=== PATIENT | female | born 1990 | race African-American/Black ===

== ENCOUNTER 2016-06-11 05:55 | Inpatient (IN) | payer MEDICAID ==
[2016-06-11] MEDS ORDERED: CARBOPROST TROMETHAMINE 250 MCG/ML 1 ML AMP IM PRN (06:16)
[2016-06-11] MEDS ORDERED: METHYLERGONOVINE 0.2 MG/ML 1 ML AMP IM PRN (06:16)
[2016-06-11] MEDS ORDERED: LIDOCAINE 1% (PF) 10 MG/ML (30 ML SDV) SQ PRN (06:16)
[2016-06-11] MEDS ORDERED: TERBUTALINE 1 MG/ML VIAL SQ PRN (06:16)
[2016-06-11] MEDS ORDERED: OXYTOCIN 10 UNIT/ML 1 ML VIAL IM PRN (06:16)
[2016-06-11] MEDS ORDERED: OXYTOCIN 30 UNITS/500 ML NS 30 UNIT in SALINE 1 500ML.BAG IV SCH (06:30)
[2016-06-11] MEDS: LACTATED RINGERS 1,000 ML IV SCH ×3 (06:52→19:17)
[2016-06-11 06:55] LABS: Basophils # (A) 0.1 k/uL (0-0.2); Basophils % (A) 1 %; CHCM 34.6; Eosinophils # (A) 0.1 k/uL (0-0.7); Eosinophils % (A) 1 %; HCT 38.1 % (34.0-46.0); HDW 2.66; HGB 12.9 gm/dL (11.4-16.0); Luc # (Auto) 0.17; Luc % (Auto) 2; Lymphocytes # (A) 1.2 k/uL (1.0-4.8); Lymphocytes % (A) 11 %; MCH 32.6 pg (25.0-35.0); MCV 95.8 fL (80.0-100.0); Mean Platelet Volume 8.9; Monocytes # (A) 0.6 k/uL (0-1.0); Monocytes % (A) 6 %; Neutrophils # (A) 8.2 k/uL (1.3-7.7); Neutrophils % (A) 79 %; RBC 3.98 m/uL (3.80-5.40); RDW 14.1 % (11.5-15.5); WBC 10.4 k/uL (3.8-10.6); WBC (Perox) 11.39
[2016-06-11 07:39] VITALS: BMI 31.7
--- NOTE | 2016-06-11 07:40 | P.HPOB ---
History of Present Illness H&P Date: 06/11/16 This is a 25-year-old female 2 para 0010 EDC 06/15/2016 at 39-3/7 weeks ' gestation. Patient presents for elective induction. Fetus is been active throughout the . She is having mild uterine contractions but denies any significant pain. She denies fluid leaking or vaginal drainage, no bleeding. history is significant for blood type O+, rubella status immune, VDRL testing, urine culture, hepatitis B surface antigen, HIV testing all negative. Gonorrhea and chlamydia cultures negative, group B strep cultures negative. One -hour Glucola 88 past surgical history significant for diagnostic hysteroscopy and D&C 2014, tonsillectomy 2004. ALLERGIES none known. Current medications vitamin daily. Past medical history is essentially negative. Social history patient works for [employer], she is single, no alcohol tobacco or drug use. On exam this is a pleasant white female, 5 foot 4 inches, 185 pounds, vital signs are stable and she is afebrile. The general physical exam is within normal limits. The chest is clear in all bowman. The extremities reveal no edema. The cervix is 1 cm, 80% effaced, anterior, soft, -2 station. Artificial amniorrhexis reveals clear fluid. heart rate in the 140s with frequent accelerations, consistent with reactive NST. Impression: 39-3/7 week intrauterine , here for elective induction of labor. Plan: Close maternal and surveillance. Oxytocin per hospital protocol. Anticipate normal spontaneous vaginal delivery. Past Medical History Past Medical History: Skin Disorder Additional Past Medical History / Comment(s): hives occ from heat exposure, abnormal vag bleeding History of Any Multi-Drug Resistant Organisms: None Reported Past Surgical History: Tonsillectomy Past Anesthesia/Blood Transfusion Reactions: No Reported Reaction Past Psychological History: No Psychological Hx Reported Smoking Status: Never smoker Past Alcohol Use History: Occasional Past Drug Use History: None Reported - Past Family History Mother Family Medical History: No Reported History Medications and Allergies Home Medications Medication Instructions Recorded Confirmed Type Vit No.124/Iron/FA 1 each PO DAILY 11/25/14 06/11/16 History [ Vitamin Tablet] Allergies Allergy/AdvReac Type Severity Reaction Status Date / Time No Known Allergies Allergy Verified 11/25/14 13:58 Exam - Vital Signs Vital signs: Intake and Output 06/10/16 06/11/16 06/11/16 22:59 06:59 14:59 Other: Weight 83.915 kg Results Result Diagrams: 06/11/16 06:30 Abnormal Lab Results - Last 24 Hours (Table) 06/11/16 Range/Units 06:30 Neutrophils # 8.2 H (1.3-7.7) k/uL
[2016-06-11] MEDS: BUTORPHANOL 1 MG/ML 1 ML VIAL IV PRN ×2 (13:35→23:39)
[2016-06-11] MEDS ORDERED: fentaNYL (PF) 50 MCG/ML 5 ML AMP ONE (15:06)
[2016-06-11] MEDS ORDERED: BUPIVACAINE (PF) 0.25% 30 ML VIAL ONE (15:06)
[2016-06-11] MEDS ORDERED: SODIUM CHLORIDE 0.9% 100 ML BAG ONE (15:06)
[2016-06-11] MEDS ORDERED: BUPIVACAINE (PF) 0.25% 25 ML, fentaNYL (PF) 200 MCG in SODIUM CHLORIDE 0.9% 71 ML EPIDURAL ONE (17:35)
[2016-06-11 23:53] LABS: Basophils % (A) 0 %; CH 32.6; CHCM 34.2; Eosinophils # (A) 0.2 k/uL (0-0.7); Eosinophils % (A) 1 %; HCT 31.4 % (34.0-46.0); HDW 2.56; HGB 10.7 gm/dL (11.4-16.0); Luc # (Auto) 0.11; Luc % (Auto) 1; Lymphocytes # (A) 0.6 k/uL (1.0-4.8); Lymphocytes % (A) 3 %; MCH 32.7 pg (25.0-35.0); MCV 95.9 fL (80.0-100.0); Mean Platelet Volume 8.4; Monocytes # (A) 0.7 k/uL (0-1.0); Monocytes % (A) 4 %; Neutrophils # (A) 18.4 k/uL (1.3-7.7); Neutrophils % (A) 92 %; RBC 3.27 m/uL (3.80-5.40); WBC (Perox) 21.43
[2016-06-12] MEDS ORDERED: ceFAZolin 1,000 MG VIAL ONE (00:14)
[2016-06-12] MEDS ORDERED: fentaNYL (PF) 50 MCG/ML 2 ML AMP ONE (00:14)
[2016-06-12] MEDS ORDERED: OXYTOCIN 10 UNIT/ML 1 ML VIAL IM ONE (00:14)
[2016-06-12] MEDS ORDERED: PHENYLEPHRINE-0.9% NACL SYG 1 MG/10 ML SYRINGE ONE (00:14)
[2016-06-12] MEDS ORDERED: SUCCINYLCHOLINE CHLORIDE 100 MG/5 ML SYR IV ONE (00:14)
[2016-06-12] MEDS ORDERED: LIDOCAINE 2% INJ 20 MG/ML (20 ML MDV) ONE (00:14)
[2016-06-12] MEDS ORDERED: MIDAZOLAM 2 MG/2 ML VIAL ONE (00:14)
[2016-06-12] MEDS ORDERED: PROPOFOL 10 MG/ML 20 ML VIAL IV ONE (00:14)
[2016-06-12 00:20] LABS: Partial Thromboplastin Time 23.7 sec (22.0-30.0); Prothrombin Time 10.1 sec (9.0-12.0)
[2016-06-12] MEDS ORDERED: WITCH HAZEL 1 EACH MED..PAD TOPICAL PRN (00:54)
[2016-06-12] MEDS ORDERED: HYDROCORTISONE 2.5% RECTAL CREAM 30 GM TUBE RECTAL PRN (00:54)
[2016-06-12] MEDS ORDERED: ACETAMINOPHEN TAB 325 MG TAB PO PRN (00:54)
[2016-06-12] MEDS ORDERED: diphenhydrAMINE ELIXIR 25 MG/10 ML CUP PO PRN (00:54)
[2016-06-12] MEDS ORDERED: diphenhydrAMINE 25 MG CAP PO PRN (00:54)
[2016-06-12] MEDS ORDERED: BENZOCAINE/MENTHOL SPRAY 1 GM/SPRAY AEROSOL TOPICAL PRN (00:54)
[2016-06-12] MEDS ORDERED: ZOLPIDEM 5 MG TAB PO PRN (00:54)
[2016-06-12] MEDS ORDERED: LANOLIN CREAM 5 GM TUBE TOPICAL PRN (00:54)
[2016-06-12] MEDS ORDERED: SIMETHICONE 80 MG CHEWABLE PO PRN (00:54)
[2016-06-12] MEDS ORDERED: diphenhydrAMINE 50 MG/ML 1 ML VIAL IVP PRN ×2 (00:54)
[2016-06-12] MEDS ORDERED: Acetaminophen-Codeine 300-30mg TAB PO PRN (00:54)
[2016-06-12] MEDS ORDERED: diphenhydrAMINE 50 MG CAP PO PRN (00:54)
--- NOTE | 2016-06-12 00:54 | P.PROBDLV ---
Vaginal Delivery Note - . Vaginal Delivery Note: This is a 25-year-old female 2 para 0010 EDC 06/15/2016 at 39-3/7 weeks ' gestation. Patient presented for induction, essentially unremarkable, blood type O+, rubella status immune, group B strep cultures negative. Please see admitting H&P for details. Artificial amniorrhexis revealed clear fluid. Oxytocin was started and titrated per hospital protocol. Patient progressed well through the first stage of labor, requested epidural and this was placed without difficulty. heart tones were reassuring throughout the first and second stages of labor. Patient became completely dilated at 2128 hours and began the second stage of labor at that time. With excellent maternal expulsive efforts, ultimately the infant crowned in the occiput posterior position. The perineal body was prepped and draped in usual sterile fashion. A midline episiotomy was performed with 1% lidocaine infiltration. 's head delivered directly occiput posterior and restituted accordingly. There was no nuchal cord noted. The left or anterior shoulder was gently delivered from underneath the pubic symphysis at which time the oropharynx, nasopharynx and external nares were bulb suctioned on the perineal body. Patient was officially delivered of a liveborn female at 07/13/2002 hours. Umbilical cord was doubly clamped and ligated, she was handed to waiting nurses for evaluation. scores of 8 and 9 at one and 5 minutes respectively were given. weighed 3155 g. At this time massage of the uterine fundus was performed. With good maternal expulsive efforts, the placenta delivered. Upon delivery of the placenta, it was noted to be firmly attached to the uterine wall with complete uterine inversion. The placenta was , intact with trivascular cord. The uterus is then pushed back into the pelvic cavity. Uterus is massaged and noted to be firm and in the midline. Inspection of the vaginal lepe, perineum , periurethral and perirectal areas revealed the midline episiotomy only. This was repaired in the usual fashion using 3-0 Vicryl suture. Bleeding was noted to be brisk, Methergine was given IM. Uterine massage continued. Hemabate was next given. A second IV was opened. Anesthesia was alerted and called to the bedside. Reexamination of the vagina cervix and uterus was consistent with a complete uterine inversion. Patient was typed and crossed for 2 units of packed red blood cells, and the decision was made to go back to the operating room for general anesthetic to revert the uterus. Family was notified of the situation. Patient was brought back to the operating room. Dr. Holguin in attendance, general anesthetic was given. 2 g of Ancef were given as well. The perineal body is prepped and draped in usual sterile fashion. Beauchamp catheter placed to direct drainage. When the patient is completely relaxed, I inserted my fist through the vagina and up into the uterine cavity, and I am able to read for the uterus into its proper configuration. A second surgeon was called to assist me, Dr. Lock in assistance. He to examine the patient under anesthesia and at this time was satisfied that the uterus was back into proper position. Bleeding was at this time minimal. The episiotomy was reinspected and a single [id number] suture is used to bring the edges together where it had slightly opened with manipulation. All sponge needle and instrument counts are correct. Total estimated blood loss 2000 mL's. 2 units of packed red blood cells will be given to the patient and IV fluid resuscitation will continue. She is currently hemodynamically stable and heading back to her delivery suite. Close medical surveillance through the night will be maintained.
[2016-06-12] MEDS ORDERED: OXYTOCIN 30 UNITS/500 ML NS 30 UNIT in SALINE 1 500ML.BAG IV SCH (01:00)
[2016-06-12] MEDS: IBUPROFEN 600 MG TAB PO PRN ×3 (01:36→20:01)
--- NOTE | 2016-06-12 08:35 | P.PN ---
Subjective Principal diagnosis: day #1 Objective - Vital Signs Vital signs: Vital Signs Temp 98.3 F 06/12/16 08:00 Pulse 122 H 06/12/16 08:00 Resp 16 06/12/16 08:00 BP 127/83 06/12/16 08:00 Pulse Ox 100 06/12/16 01:15 Intake & Output 06/11/16 06/12/16 06/12/16 18:59 06:59 18:59 Intake Total 3120 Output Total 250 300 Balance -250 2820 Intake: IV 2500 Lactated Ringers 1,000 ml 1500 @ 125 mls/hr IV .Q8H ESSIE Rx#:[id number] Oxytocin 30 Units/500 ml 1000 Ns 30 unit In Saline 1 500ml.bag @ 1 MILLIUNIT/ MIN 1 mls/hr IV .Q24H ESSIE Rx#:[id number] Blood Product 620 Rc As-1 Unit 310 [id number] Rc As-1 Unit 310 [id number] Output: Urine 250 300 Straight 250 300 Other: # Voids 1 1 - Constitutional General appearance: Present: average body habitus - EENT Eyes: Present: PERRLA ENT: Present: hearing grossly normal - Neck Neck: Present: normal ROM Thyroid: bilateral: normal size - Respiratory Respiratory: bilateral: CTA - Cardiovascular Rhythm: regular - Gastrointestinal Gastrointestinal Comment(s): Fundus firm, midline, symmetric, 18 week size, nontender - Genitourinary Genitourinary Comment(s): Minimal lochia rubra - Integumentary Integumentary: Present: normal - Neurologic Neurologic: Present: CNII-XII intact - Musculoskeletal Musculoskeletal: Present: gait normal, strength equal bilaterally - Psychiatric Psychiatric: Present: A&O x's 3, appropriate affect, intact judgment & insight - Labs CBC & Chem 7: 06/11/16 23:42 Labs: Abnormal Lab Results - Last 24 Hours (Table) 06/11/16 06/11/16 06/11/16 Range/Units 06:30 23:42 23:42 WBC 20.0 H (3.8-10.6) k/uL RBC 3.27 L (3.80-5.40) m/uL Hgb 10.7 L (11.4-16.0) gm/dL Hct 31.4 L (34.0-46.0) % Neutrophils # 18.4 H (1.3-7.7) k/uL Lymphocytes # 0.6 L (1.0-4.8) k/uL D-Dimer 6.84 H (<0.60) mg/L FEU Crossmatch See Detail Assessment and Plan Plan: Continue care. May discontinue IV. May shower. Regular diet. Likely discharge home tomorrow. Time with Patient: Less than 30
[2016-06-12] MEDS: SENNOSIDES-DOCUSATE SODIUM 1 EACH TAB PO SCH ×2 (10:27→20:01)
[2016-06-13] MEDS: SENNOSIDES-DOCUSATE SODIUM 1 EACH TAB PO SCH ×2 (07:46→21:37)
--- NOTE | 2016-06-13 08:26 | P.PNOBGVD ---
Subjective - Subjective Principal diagnosis: day 1 status post vaginal delivery with uterine inversion Interval history: Patient reports her pain is well-controlled and her vaginal bleeding has significantly decreased. She does feel like her heart is racing when she gets up and out of bed however she denies feeling dizzy or lightheaded. She is tolerating a general diet. Patient reports: Reports appetite normal, Reports voiding normally, Reports pain well controlled, Denies dizzy ambulation : doing well Objective - Latest Vital Signs Latest vital signs: Vital Signs Temp Pulse Resp BP Pulse Ox 06/13/16 07:49 97.9 F 110 H 16 122/66 98 06/13/16 00:00 98.4 F 122 H 16 111/51 06/12/16 20:00 98.6 F 110 H 16 131/66 100 06/12/16 16:00 98.2 F 118 H 14 133/68 06/12/16 12:00 98.6 F 119 H 16 134/84 Intake and Output 06/12/16 06/13/16 06/13/16 22:59 06:59 14:59 Other: # Voids 1 2 - Exam Extremities: Present: edema Abdomen: Present: normal appearance, soft Uterus: Present: normal, firm, tenderness Assessment and Plan (1) with 39 completed weeks gestation Current Visit: Yes Status: Acute Code(s): Z3A.39 - 39 WEEKS GESTATION OF SNOMED Code(s): 29403359 (2) Uterine inversion Current Visit: Yes Status: Acute Code(s): N85.5 - INVERSION OF UTERUS SNOMED Code(s): 44285946 (3) Normal spontaneous vaginal delivery Current Visit: Yes Status: Acute Code(s): O80 - ENCOUNTER FOR FULL-TERM UNCOMPLICATED DELIVERY SNOMED Code(s): 37712793 (4) Perineal laceration with delivery, second degree Current Visit: Yes Status: Acute Code(s): O70.1 - SECOND DEGREE PERINEAL LACERATION DURING DELIVERY SNOMED Code(s): 3729819 (5) Blood transfusion during current hospitalization Current Visit: Yes Status: Acute Code(s): YOX2760 - SNOMED Code(s): 074074328 (6) Acute blood loss anemia Narrative/Plan: Patient still is tachycardic and somewhat symptomatic. I do not believe she is stable for discharge home. We will repeat CBC this morning as it has not been done since post transfusion. She is not having any active vaginal bleeding at this time. Current Visit: Yes Status: Acute Code(s): D62 - ACUTE POSTHEMORRHAGIC ANEMIA SNOMED Code(s): 835396527
[2016-06-13 09:29] LABS: CH 31.8; CHCM 34.4; MCH 31.7 pg (25.0-35.0); MCHC 34.1 g/dL (31.0-37.0); Mean Platelet Volume 8.4; RBC 2.29 m/uL (3.80-5.40); RDW 15.7 % (11.5-15.5); WBC 16.5 k/uL (3.8-10.6)
[2016-06-13 09:30] LABS: HGB 7.3 gm/dL (11.4-16.0)
[2016-06-13 09:33] LABS: HCT 21.3 % (34.0-46.0)
[2016-06-14 08:05] LABS: Basophils % (A) 0 %; CHCM 34.5; Eosinophils # (A) 0.1 k/uL (0-0.7); Eosinophils % (A) 1 %; HDW 3.08; HGB 8.2 gm/dL (11.4-16.0); Luc # (Auto) 0.15; Luc % (Auto) 1; Lymphocytes # (A) 1.3 k/uL (1.0-4.8); Lymphocytes % (A) 12 %; MCH 31.7 pg (25.0-35.0); MCV 93.4 fL (80.0-100.0); Mean Platelet Volume 8.5; Monocytes # (A) 0.5 k/uL (0-1.0); Monocytes % (A) 5 %; Neutrophils # (A) 8.4 k/uL (1.3-7.7); Neutrophils % (A) 80 %; RBC 2.57 m/uL (3.80-5.40); RDW 15.3 % (11.5-15.5); WBC 10.5 k/uL (3.8-10.6); WBC (Perox) 11.21
[2016-06-14] MEDS: SENNOSIDES-DOCUSATE SODIUM 1 EACH TAB PO SCH (08:10)
--- NOTE | 2016-06-14 08:29 | P.DS ---
Providers Date of admission: 06/11/16 05:55 Expected date of discharge: 06/14/16 Attending physician: Luisa Barillas Primary care physician: Dax Damon - Discharge Diagnosis(es) (1) with 39 completed weeks gestation Current Visit: Yes Status: Acute (2) Uterine inversion Current Visit: Yes Status: Acute (3) Normal spontaneous vaginal delivery Current Visit: Yes Status: Acute (4) Perineal laceration with delivery, second degree Current Visit: Yes Status: Acute (5) Blood transfusion during current hospitalization Current Visit: Yes Status: Acute (6) Acute blood loss anemia Current Visit: Yes Status: Acute Hospital Course: This is a 25-year-old 1 now para 1 woman who was admitted at 39 weeks gestation for elective induction of labor. She underwent an uncomplicated Pitocin induction of labor with artificial rupture of membranes. She went on to deliver a liveborn female infant over second-degree perineal laceration. The third stage was complicated by a uterine inversion with delivery of the placenta. The uterus was initially replaced however on hemorrhage ensued and examination revealed continued uterine inversion. Patient was therefore taken to the operating room for reversion of the uterus. She had an estimated blood loss of approximately 2000 mL's. She was initially transfused 2 units of packed red blood cells. By day #1 her vaginal bleeding was significantly decreased and the uterus palpated firm below the level of the umbilicus. She was however symptomatic. She was lightheaded when up and had an elevated heart rate. Repeat CBC showed a hemoglobin of 7.3. She was therefore on day #2 transfused an additional 1 unit of packed red blood cells. Currently approximately 12 hours post the second transfusion she reports feeling significantly better. She is ambulating and voiding without difficulty. She no longer feels dizzy or like her heart is racing. Her vaginal bleeding is minimal and she reports her perineal swelling is significantly improved. The uterus continues to palpate firm and below the level of the umbilicus. She was therefore deemed stable for discharge home with routine instructions for care and follow-up Procedures: Normal spontaneous vaginal delivery Treatment of uterine inversion Transfusion of packed red blood cells Patient Condition at Discharge: Good Plan - Discharge Summary Discharge Medication List Vit No.124/Iron/FA [ Vitamin Tablet] 1 each PO DAILY 11/25/14 [ History] Follow up Appointment(s)/Referral(s): Luisa Barillas MD [STAFF PHYSICIAN] - 6 Weeks Activity/Diet/Wound Care/Special Instructions: Follow-up in the office in 6 weeks . Call with any concerning signs or symptoms including heavy vaginal bleeding, severe abdominal pain, fever greater than 101, swelling or redness of the lower extremities, foul vaginal discharge, or signs of depression. Nothing in the vagina for 6 weeks after delivery, specifically no intercourse. Discharge Disposition: HOME SELF-CARE
[2016-06-14 09:15] VITALS: BP 132/76; PULSE 87; RESP 16; TEMP 98
== END 2016-06-14 11:05 | disposition home or self-care (01) | DRG 774 ==
LOC: 4FBP 05:55
PROVIDERS: ADMIT Obstetrics & Gynecology; ATTEND Obstetrics & Gynecology
PROC: 3E0R3CZ (ICD-10-PCS; principal; 2016-06-11 06:00)
PROC: 10907ZC Drainage of Amniotic Fluid, Therapeutic from Products of Conception, Via Natural or Artificial Opening (ICD-10-PCS; principal; 2016-06-11 06:00)
PROC: 3E033VJ Introduction of Other Hormone into Peripheral Vein, Percutaneous Approach (ICD-10-PCS; principal; 2016-06-11 06:00)
PROC: 00HU33Z Insertion of Infusion Device into Spinal Canal, Percutaneous Approach (ICD-10-PCS; principal; 2016-06-11 06:00)
PROC: 0W8NXZZ Division of Female Perineum, External Approach (ICD-10-PCS; 2016-06-12)
PROC: 30233N1 Transfusion of Nonautologous Red Blood Cells into Peripheral Vein, Percutaneous Approach (ICD-10-PCS; 2016-06-12)
PROC: 10E0XZZ Delivery of Products of Conception, External Approach (ICD-10-PCS; 2016-06-12)
PROC: 0US9XZZ Reposition Uterus, External Approach (ICD-10-PCS; 2016-06-12)
DX: O71.2 Postpartum inversion of uterus (principal); O72.1 Other immediate postpartum hemorrhage; D62 Acute posthemorrhagic anemia; Z3A.39 39 weeks gestation of pregnancy; Z37.0 Single live birth
CPT/HCPCS: 85025; 85027; 85379; 85384; 85610; 85730; 86850; 86900; 86901; 86920; 88307

== ENCOUNTER → 2016-09-18 | Outpatient (CLI) | payer MEDICAID ==
--- NOTE | 2016-09-20 11:08 | ECHOF ---
Referral Reason:R01.1 Heart murmur MEASUREMENTS -------- HEIGHT: 162.6 cm WEIGHT: 76.2 kg BP: 138/69 RVIDd: 2.1 cm (< 3.3) IVSd: 1.0 cm (0.6 - 1.1) LVIDd: 3.4 cm (3.9 - 5.3) LVPWd: 1.0 cm (0.6 - 1.1) IVSs: 1.2 cm LVIDs: 2.4 cm LVPWs: 1.6 cm LA Diam: 2.5 cm (2.7 - 3.8) LAESV Index (A-L): 10.84 ml/m Ao Diam: 2.3 cm (2.0 - 3.7) AV Cusp: 1.3 cm (1.5 - 2.6) LA Diam: 2.0 cm (2.7 - 3.8) MV EXCURSION: 10.933 mm (> 18.000) MV EF SLOPE: 75 mm/s (70 - 150) EPSS: 0.6 cm MV E Edilson: 0.96 m/s MV DecT: 163 ms MV A Edilson: 0.83 m/s MV E/A Ratio: 1.16 FINDINGS -------- Sinus rhythm. This was a technically good study. Left ventricular wall thickness is normal. Overall left ventricular systolic function is normal with, an EF between 55 - 60 %. The right ventricle is normal in size. Normal LA size by volume 22+/-6 ml/m2. The right atrium is normal in size. Aortic valve is trileaflet and is mildly thickened. The mitral valve leaflets are mildly thickened. Mild mitral annular calcification present. Trace tricuspid regurgitation present. Pulmonic valve appears structurally normal. The aortic root size is normal. Normal inferior vena cava with normal inspiratory collapse consistent with estimated right atrial pressure of 5 mmHg. There is no pericardial effusion. CONCLUSIONS -------- 1. Sinus rhythm. 2. Mild mitral annular calcification present. 3. Trace tricuspid regurgitation present. 4. Pulmonic valve appears structurally normal. 5. The aortic root size is normal. 6. Normal inferior vena cava with normal inspiratory collapse consistent with estimated right atrial pressure of 5 mmHg. 7. There is no pericardial effusion. 8. This was a technically good study. 9. Left ventricular wall thickness is normal. 10. Overall left ventricular systolic function is normal with, an EF between 55 - 60 %. 11. The right ventricle is normal in size. 12. Normal LA size by volume 22+/-6 ml/m2. 13. The right atrium is normal in size. 14. Aortic valve is trileaflet and is mildly thickened. 15. The mitral valve leaflets are mildly thickened. PODIATRIC PHYSICIAN: Clarisa Ibrahim RDCS
== END | disposition home or self-care (01) ==
LOC: RADECHMAIN 16:23
PROVIDERS: ATTEND Family Medicine
DX: I08.1 Rheumatic disorders of both mitral and tricuspid valves (principal)
CPT/HCPCS: 93306

== ENCOUNTER → 2017-09-09 | Outpatient (CLI) | payer MEDICAID | END | disposition home or self-care (01) | LOC: LABWHC1 10:47 | PROVIDERS: ATTEND Obstetrics & Gynecology | DX: O20.0 Threatened abortion (principal); Z3A.00 Weeks of gestation of pregnancy not specified | CPT/HCPCS: 36415; 84702 ==

== ENCOUNTER → 2017-09-11 | Outpatient (CLI) | payer MEDICAID | END | disposition home or self-care (01) | LOC: LABWHC1 07:29 | PROVIDERS: ATTEND Obstetrics & Gynecology | DX: O20.0 Threatened abortion (principal) | CPT/HCPCS: 36415; 84702 ==

== ENCOUNTER → 2017-09-25 | Outpatient (CLI) | payer MEDICAID | END | disposition home or self-care (01) | LOC: LABWHC1 07:04 | PROVIDERS: ATTEND Obstetrics & Gynecology | DX: O02.1 Missed abortion (principal) | CPT/HCPCS: 36415; 84702 ==

== ENCOUNTER → 2018-07-02 | Outpatient (CLI) | payer BC, OTHER | END | disposition home or self-care (01) | LOC: LABWHC1 06:42 | PROVIDERS: ATTEND Obstetrics & Gynecology | DX: Z36.9 Encounter for antenatal screening, unspecified (principal) | CPT/HCPCS: 36415; 82950 ==

== ENCOUNTER 2018-10-01 06:00 | Inpatient (IN) | payer BC, OTHER ==
[2018-10-01] MEDS ORDERED: TERBUTALINE 1 MG/ML VIAL SQ PRN (06:11)
[2018-10-01] MEDS ORDERED: OXYTOCIN 10 UNIT/ML 1 ML VIAL IM PRN (06:11)
[2018-10-01] MEDS ORDERED: LIDOCAINE 0.5% (PF) 5 MG/ML (50 ML SDV) SQ PRN (06:11)
[2018-10-01] MEDS ORDERED: CARBOPROST TROMETHAMINE 250 MCG/ML 1 ML AMP IM PRN (06:11)
[2018-10-01] MEDS ORDERED: METHYLERGONOVINE 0.2 MG/ML 1 ML AMP IM PRN (06:11)
[2018-10-01] MEDS ORDERED: OXYTOCIN 30 UNITS/500 ML NS 30 UNIT in SALINE 1 500ML.BAG IV SCH (06:15)
[2018-10-01 06:18] VITALS: BMI 32.5
[2018-10-01] MEDS: LACTATED RINGERS 1,000 ML IV SCH ×3 (06:19→14:48)
[2018-10-01 06:31] LABS: Basophils % (A) 0 %; Eosinophils # (A) 0.1 k/uL (0-0.7); Eosinophils % (A) 1 %; HCT 37.5 % (34.0-46.0); HGB 12.6 gm/dL (11.4-16.0); Lymphocytes # (A) 1.8 k/uL (1.0-4.8); Lymphocytes % (A) 14 %; MCH 31.6 pg (25.0-35.0); MCHC 33.7 g/dL (31.0-37.0); MCV 93.9 fL (80.0-100.0); Monocytes # (A) 0.6 k/uL (0-1.0); Monocytes % (A) 5 %; Neutrophils # (A) 10.2 k/uL (1.3-7.7); Neutrophils % (A) 78 %; Platelet Count 328 k/uL (150-450); RBC 3.99 m/uL (3.80-5.40); RDW 14.7 % (11.5-15.5)
--- NOTE | 2018-10-01 07:44 | P.HPOB ---
History of Present Illness H&P Date: 10/01/18 This is a 28-year-old black female 4 para 10-1 EDC 10/01/2018 at 40 weeks gestation. Patient presents today for induction with favorable multiparous cervix. has been unremarkable. Fetus is been active throughout. She denies vaginal bleeding or fluid leakage. Past medical history is essentially negative. Past surgical history diagnostic hysteroscopy with D&C for retained products of conception after miscarriage in 2014, tonsillectomy 2003. Current medications vitamins daily. ALLERGIES none known. Family history significant for breast cancer, diabetes, hypercholesterolemia, lung cancer. Social history patient is single, father of the baby is present and involved. She works for [employer] locally. She has never been a smoker and denies alcohol or drug use. Reproductive history significant for vaginal delivery 6 lbs. 15 oz. female in 2017 with uterine inversion experience in the third stage of labor, resolved manually. Obstetric history is significant for negative group B strep cultures, blood type O positive, rubella status immune. One-hour Glucola 113. Gonorrhea and chlamydia cultures, hepatitis B surface antigen, urine culture, Pap smear all negative. On exam this is a pleasant black female who is 5 foot 4 inches, 190 pounds, blood pressure 135/73 on admission, vital signs otherwise stable and patient is afebrile. The general physical exam is within normal limits. The extremities reveal no edema. The cervix is 4 cm dilated, 80% effaced, -2 station, vertex presentation. Artificial amniorrhexis reveals clear fluid. heart rate is in the 140s baseline with frequent accelerations consistent with reactive NST. Uterine contractions are currently occurring every 6-7 minutes apart of mild intensity. Impression: 40 week intrauterine , here for induction of labor. All signs reassuring. Plan: Continue oxytocin augmentation per hospital protocol. Analgesic options have been reviewed with the patient. Continue close maternal and surveillance. Anticipate normal spontaneous vaginal delivery. Review of Systems Negative except as in HPI. Constitutional: Reports as per HPI Past Medical History Past Medical History: Skin Disorder Additional Past Medical History / Comment(s): hives occ from heat exposure, abnormal vag bleeding History of Any Multi-Drug Resistant Organisms: None Reported Past Surgical History: Tonsillectomy Additional Past Surgical History / Comment(s): d&c, inverted uterus Past Anesthesia/Blood Transfusion Reactions: No Reported Reaction Past Psychological History: No Psychological Hx Reported Smoking Status: Never smoker Past Alcohol Use History: Occasional Past Drug Use History: None Reported - Past Family History Mother Family Medical History: No Reported History Medications and Allergies Home Medications Medication Instructions Recorded Confirmed Type Vit No.124/Iron/Folic 1 each PO DAILY 11/25/14 10/01/18 History [ Vitamin Tablet] Allergies Allergy/AdvReac Type Severity Reaction Status Date / Time No Known Allergies Allergy Verified 10/01/18 06:10 Exam Vital Signs Temp Pulse Resp BP Pulse Ox 10/01/18 06:15 97.6 F 113 H 16 135/73 100 Intake and Output 09/30/18 10/01/18 10/01/18 22:59 06:59 14:59 Other: Weight 86.183 kg See dictation under HPI please Results Result Diagrams: 10/01/18 06:15 Abnormal Lab Results - Last 24 Hours (Table) 10/01/18 Range/Units 06:15 WBC 13.0 H (3.8-10.6) k/uL Neutrophils # 10.2 H (1.3-7.7) k/uL Assessment and Plan Assessment: 40 week intrauterine , favorable multiparous cervix, here for elective induction of labor. Plan: Oxytocin per hospital protocol. Continue close maternal and surveillance. Analgesic options have been reviewed with the patient. Anticipate normal spontaneous vaginal delivery. Time with Patient: Less than 30
[2018-10-01] MEDS ORDERED: ROPIVACAINE 100 MG, fentaNYL (PF) 200 MCG in SODIUM CHLORIDE 0.9% 76 ML EPIDURAL ONE (11:28)
[2018-10-01] MEDS ORDERED: HYDROCORTISONE 2.5% RECTAL CREAM 30 GM TUBE RECTAL PRN (15:35)
[2018-10-01] MEDS ORDERED: ZOLPIDEM 5 MG TAB PO PRN (15:35)
[2018-10-01] MEDS ORDERED: diphenhydrAMINE 50 MG/ML 1 ML VIAL IVP PRN ×2 (15:35)
[2018-10-01] MEDS ORDERED: BENZOCAINE/MENTHOL SPRAY 1 GM/SPRAY AEROSOL TOPICAL PRN (15:35)
[2018-10-01] MEDS ORDERED: diphenhydrAMINE 25 MG CAP PO PRN (15:35)
[2018-10-01] MEDS ORDERED: diphenhydrAMINE 50 MG CAP PO PRN (15:35)
[2018-10-01] MEDS ORDERED: SIMETHICONE 80 MG CHEWABLE PO PRN (15:35)
[2018-10-01] MEDS ORDERED: WITCH HAZEL 1 EACH MED..PAD TOPICAL PRN (15:35)
[2018-10-01] MEDS ORDERED: LANOLIN CREAM 5 GM TUBE TOPICAL PRN (15:35)
--- NOTE | 2018-10-01 15:35 | P.PROBDLV ---
Vaginal Delivery Note - . Vaginal Delivery Note: This is a 28-year-old black female 4 para 10-1 EDC 10/01/2018 at 40 weeks gestation. Patient presented for induction with favorable multiparous cervix. Fetus is been active throughout the . Blood type is O+, rubella status immune, group B strep cultures negative. Please see my dictated history and physical for details. Artificial amniorrhexis revealed clear fluid. Oxytocin was started and titrated per hospital protocol. Patient became completely dilated at 1449 hours and began the second stage of labor at that time. Perineal body was prepped and draped in usual sterile fashion. heart tones were reassuring throughout the first and second stages of labor, occasional late variable decelerations noted towards the end of the second stage. With excellent maternal efforts the 's head delivered occiput anterior and he restituted accordingly. There was no nuchal cord noted. The right or anterior shoulder was gently delivered from underneath the pubic symphysis at which time the oropharynx, nasopharynx, and external nares were all bulb suctioned on the perineal body. Patient was officially delivered of a liveborn male infant at 1511 hours. Umbilical cord was doubly clamped and ligated, he was handed to waiting nurses for evaluation where scores of 9 and 9 at one and 5 minutes respectively were given. The uterus was then massaged. Cord blood was sent to the lab for Rh+, O+ status. Again with excellent maternal expulsive efforts the placenta delivered spontaneously, it was inspected and noted to be intact with trivascular cord at 1519 hours. The uterus is again massaged. Inspection now of the cervix, vagina, perineum, periurethral, and perirectal areas revealed intact tissues, no defects. No suturing was deemed necessary. All sponge needle and enhancement counts are correct at the end of the procedure. Total estimated blood loss 300 mL's. weighs 3665 g or 8 lbs. 1 oz. They are requesting circumcision further infant son.
[2018-10-01] MEDS ORDERED: OXYTOCIN 20 UNITS/1000 ML NS 1,000 ML IV SCH (15:45)
[2018-10-01] MEDS: IBUPROFEN 600 MG TAB PO PRN ×2 (15:54→23:54)
[2018-10-01] MEDS: ACETAMINOPHEN TAB 325 MG TAB PO PRN (21:11)
[2018-10-01] MEDS: SENNOSIDES-DOCUSATE SODIUM 1 EACH TAB PO SCH (21:24)
[2018-10-02] MEDS: ACETAMINOPHEN TAB 325 MG TAB PO PRN ×2 (04:25→11:14)
[2018-10-02 06:59] LABS: Basophils % (A) 0 %; Eosinophils # (A) 0.1 k/uL (0-0.7); Eosinophils % (A) 0 %; HCT 32.4 % (34.0-46.0); HGB 10.8 gm/dL (11.4-16.0); Lymphocytes # (A) 1.8 k/uL (1.0-4.8); Lymphocytes % (A) 9 %; MCH 32.1 pg (25.0-35.0); MCHC 33.2 g/dL (31.0-37.0); MCV 96.7 fL (80.0-100.0); Mean Platelet Volume 7.8; Monocytes % (A) 5 %; Neutrophils # (A) 16.3 k/uL (1.3-7.7); Neutrophils % (A) 83 %; Platelet Count 295 k/uL (150-450); RBC 3.35 m/uL (3.80-5.40); RDW 14.1 % (11.5-15.5); WBC 19.7 k/uL (3.8-10.6)
[2018-10-02] MEDS: SENNOSIDES-DOCUSATE SODIUM 1 EACH TAB PO SCH (08:00)
--- NOTE | 2018-10-02 08:07 | P.DS ---
Providers Date of admission: 10/01/18 06:00 Expected date of discharge: 10/02/18 Attending physician: Luisa Barillas Primary care physician: [facility] Course: This is a 28-year-old black female 4 para 10-1 EDC 10/01/2018 at 40 weeks gestation. Patient presented for induction with favorable multiparous cervix. is essentially unremarkable, group B strep cultures negative, blood type O+, rubella status immune. Please see my dictated history and physical for details. Patient was admitted, artificial amniorrhexis was performed. Epidural was placed per her request. Oxytocin was started and titrated per hospital protocol. She went on to deliver a liveborn male with scores of 9 and 9 at one and 5 minutes respectively. Infant weight 8 lbs. 1 oz. or 3665 g. There was an estimated blood loss recorded of 300 mL, no perineal lacerations were encountered. Please see dictated delivery note for details. This morning the patient is doing well. She is voiding, ambulating and passing flatus without difficulty. Vital signs are stable and she is afebrile. Breast- feeding is going well. I have given her prescription for a double electric breast pump. Her fundus is firm and in the midline, symmetric and 18 week size. Extremities are negative for edema. infant is doing well and circumcision will be performed at this time. Patient is being discharged home later today in very good condition. She will follow-up with me in the office in 6 weeks. I reminded her no intercourse, tampons or douching. She will use [id number] ibuprofen or Advil as needed. She will continue taking her vitamin daily. She will call me with any fevers shakes or chills, foul smelling or copious lochia, with the passage of large blood clots, or indeed with any concerns. Patient Condition at Discharge: Good Plan - Discharge Summary Discharge Rx Participant: No New Discharge Prescriptions: No Action Vit No.124/Iron/Folic [ Vitamin Tablet] 1 each PO DAILY Discharge Medication List Vit No.124/Iron/Folic [ Vitamin Tablet] 1 each PO DAILY 11/25/14 [History] Follow up Appointment(s)/Referral(s): Luisa Barillas MD [STAFF PHYSICIAN] - 6 Weeks Discharge Disposition: HOME SELF-CARE
[2018-10-02] MEDS: IBUPROFEN 600 MG TAB PO PRN (08:38)
[2018-10-02 08:49] VITALS: BP 125/69; PULSE 81; RESP 18; TEMP 97.6
== END 2018-10-02 17:20 | disposition home or self-care (01) | DRG 807 ==
LOC: 4FBP 06:00
PROVIDERS: ADMIT Obstetrics & Gynecology; ATTEND Obstetrics & Gynecology
PROC: 10E0XZZ Delivery of Products of Conception, External Approach (ICD-10-PCS; principal; 2018-10-01)
PROC: 3E033VJ Introduction of Other Hormone into Peripheral Vein, Percutaneous Approach (ICD-10-PCS; 2018-10-01)
PROC: 10907ZC Drainage of Amniotic Fluid, Therapeutic from Products of Conception, Via Natural or Artificial Opening (ICD-10-PCS; 2018-10-01)
PROC: 00HU33Z Insertion of Infusion Device into Spinal Canal, Percutaneous Approach (ICD-10-PCS; 2018-10-01)
PROC: 3E0R3BZ Introduction of Anesthetic Agent into Spinal Canal, Percutaneous Approach (ICD-10-PCS; 2018-10-01)
DX: O76 Abnormality in fetal heart rate and rhythm complicating labor and delivery (principal); Z37.0 Single live birth; Z3A.40 40 weeks gestation of pregnancy; L98.9 Disorder of the skin and subcutaneous tissue, unspecified; Z80.3 Family history of malignant neoplasm of breast; Z80.1 Family history of malignant neoplasm of trachea, bronchus and lung; Z83.42 Family history of familial hypercholesterolemia; Z79.899 Other long term (current) drug therapy; Z83.3 Family history of diabetes mellitus
CPT/HCPCS: 85025; 86850; 86900; 86901

== ENCOUNTER 2018-10-04 11:49 | Emergency (ER) | payer BC, OTHER ==
[2018-10-04] MEDS ORDERED: KETOROLAC 30 MG/ML 1 ML VIAL IM STA (12:33)
[2018-10-04] MEDS ORDERED: CYCLOBENZAPRINE 10MG STARTER 3 TAB BTL PO STA (12:33)
--- NOTE | 2018-10-04 13:23 | XR ---
EXAMINATION TYPE: XR cervical spine limited , 3 VIEWS DATE OF EXAM ORDERED: 10/04/2018 HISTORY: Neck pain. COMPARISON: None. FINDINGS: Vertebral body height and alignment are maintained. There is some loss of the normal cervi lore lordosis. Atlantoaxial relationships are normal. Prevertebral soft tissues are normal. IMPRESSION: NO ACUTE OSSEOUS LESION.
--- NOTE | 2018-10-04 13:38 | ED ---
Neck Injury/Pain HPI - General Chief Complaint: Neck Pain/Injury Stated Complaint: Neck pain Time Seen by Provider: 10/04/18 12:15 Source: RN notes reviewed, old records reviewed Mode of arrival: ambulatory Limitations: no limitations - History of Present Illness Initial Comments: Patient is a 28 year old female presents today with neck pain after delivering her baby. Patient states that she has pain with range of motion turning her head left and right. She was straining when she was in labor and had her neck bent forward. Patient states that she took a muscle x-ray LS and it helped. She did see a chiropractor yesterday with no significant improvement of her symptoms. Patient states that she has no fevers or chills, or headache. She denies any other complaints. She states that she is attempting to rescue. - Related Data Home Medications Medication Instructions Recorded Confirmed Vit No.124/Iron/Folic 1 each PO DAILY 11/25/14 10/01/18 [ Vitamin Tablet] Previous Rx's Medication Instructions Recorded Ibuprofen 600 mg PO TID #20 tablet 10/04/18 Allergies Allergy/AdvReac Type Severity Reaction Status Date / Time No Known Allergies Allergy Verified 10/04/18 12:23 Review of Systems ROS Statement: Those systems with pertinent positive or pertinent negative responses have been documented in the HPI. ROS Other: All systems not noted in ROS Statement are negative. Past Medical History Past Medical History: Skin Disorder Additional Past Medical History / Comment(s): hives occ from heat exposure, abnormal vag bleeding History of Any Multi-Drug Resistant Organisms: None Reported Past Surgical History: Tonsillectomy Additional Past Surgical History / Comment(s): d&c, inverted uterus Past Anesthesia/Blood Transfusion Reactions: No Reported Reaction Past Psychological History: No Psychological Hx Reported Smoking Status: Never smoker Past Alcohol Use History: Occasional Past Drug Use History: None Reported - Past Family History Mother Family Medical History: No Reported History General Exam - General Exam Comments Initial Comments: This is a 28-year-old female. Alert and oriented. No significant distress. Limitations: no limitations General appearance: alert, in no apparent distress Head exam: Present: atraumatic, normocephalic, normal inspection Eye exam: Present: normal appearance, PERRL, EOMI. Absent: scleral icterus, conjunctival injection, periorbital swelling ENT exam: Present: normal exam, mucous membranes moist Neck exam: Present: normal inspection, tenderness (Patient has some tenderness over the cervical spine. Tenderness over the paraspinal muscles. Patient is unable to fully turn her head left and right due to spasms and pain.). Absent: meningismus, lymphadenopathy Respiratory exam: Present: normal lung sounds bilaterally. Absent: respiratory distress, wheezes, rales, rhonchi, stridor Cardiovascular Exam: Present: regular rate, normal rhythm, normal heart sounds. Absent: systolic murmur, diastolic murmur, rubs, gallop, clicks GI/Abdominal exam: Present: soft, normal bowel sounds. Absent: distended, tenderness, guarding, rebound, rigid Extremities exam: Present: normal inspection, full ROM, normal capillary refill. Absent: tenderness, pedal edema, joint swelling, calf tenderness Back exam: Present: normal inspection Neurological exam: Present: alert, oriented X3, CN II-XII intact Psychiatric exam: Present: normal affect, normal mood Skin exam: Present: warm, dry, intact, normal color. Absent: rash Course Vital Signs 10/04/18 12:19 Temperature 97.9 F Pulse Rate 91 Respiratory 20 Rate Blood Pressure 132/81 O2 Sat by Pulse 100 Oximetry Medical Decision Making - Medical Decision Making 28-year-old female presented today with neck pain a few days after delivering her child. She had her neck clenched forward and strained during her . Patient at this time has some cervical spinal tenderness. Patient's x-ray shows no evidence acute abdomen ice. Was given a by mout Flexeril and Toradol. Discussed she is breast-feeding she is pump and dump. He shouldn't likely severed for muscle strain from the recent stress of moving childbirth. I discussed taking muscle relaxers and alternate between Motrin Tylenol as well as doing heat and cold over her neck. All questions answered return parameters wer e discussed. Disposition Clinical Impression: Neck muscle spasm, Cervical strain Disposition: HOME SELF-CARE Condition: Good Instructions (If sedation given, give patient instructions): Cervical Strain (ED) Additional Instructions: Take Motrin Tylenol as prescribed. Taking the muscle relaxers need to pump and dump her milk. Patient should have follow-up with your primary. Return to emergency department if any alarming signs or symptoms occur. Patient should put warm compresses on for 20 minutes and alternate ice for 20 minutes. Prescriptions: Ibuprofen 600 mg PO TID #20 tablet Is patient prescribed a controlled substance at d/c from ED?: No Referrals: Jayy Simon MD [Primary Care Provider] - 1-2 days Time of Disposition: 13:37
[2018-10-04 13:53] VITALS: BP 130/79; PULSE 86; RESP 18; TEMP 98.2
== END 2018-10-04 13:52 | disposition home or self-care (01) ==
LOC: EC 11:49
DX: S16.1XXA Strain of muscle, fascia and tendon at neck level, initial encounter (principal); M62.838 Other muscle spasm; X58.XXXA Exposure to other specified factors, initial encounter
CPT/HCPCS: 72040; 99284; 96372; J1885

== ENCOUNTER → 2019-07-22 | Outpatient (CLI) | payer OTHER ==
--- NOTE | 2019-07-23 08:00 | US ---
EXAMINATION TYPE: US thyroid st tissue head/neck DATE OF EXAM: 07/22/2019 COMPARISON: NONE CLINICAL HISTORY: E05.90 Thyrotoxicosis unspecified without.... Abnormal labs GLAND SIZE: Right Lobe: 4.2 x 1.4 x 1.3 cm Overall Parenchyma: homogenous Left Lobe: 4.4 x 1.4 x 1.1 cm Overall Parenchyma: homogeneous Isthmus Thickness: 0.2 cm NODULES RIGHT: # of nodules measured on right: 0 LEFT: # of nodules measured on left: 0 ISTHMUS: # of nodules measured in the isthmus: 0 Bilateral neck scanned, no evidence of lymphadenopathy. IMPRESSION: Prominent size of the otherwise unremarkable thyroid gland. No nodule. Homogeneous echote xture.
== END | disposition home or self-care (01) ==
LOC: RADUSWWP 15:59
PROVIDERS: ATTEND Family Medicine
DX: E05.90 Thyrotoxicosis, unspecified without thyrotoxic crisis or storm (principal)
CPT/HCPCS: 76536

== ENCOUNTER → 2021-12-22 | Outpatient (CLI) | payer OTHER ==
--- NOTE | 2021-12-22 09:01 | US ---
EXAMINATION TYPE: US abdomen complete DATE OF EXAM: 12/22/2021 COMPARISON: NONE CLINICAL HISTORY: R10.11 RUQ PAIN. Intermittent abdomen pain and N/V/D EXAM MEASUREMENTS: Liver Length: 15.6 cm Gallbladder Wall: 0.2 cm CBD: 0.2 cm Spleen: 8.8 cm Right Kidney: 10.7 x 4.6 x 4.7 cm Left Kidney: 10.9 x 5.4 x 4.3 cm Pancreas: visualized portions wnl, limited by overlying midline bowel gas Liver: wnl Gallbladder: wnl Evidence for sonographic Rios's sign: no CBD: visualized portions wnl, limited by overlying bowel gas Spleen: wnl Right Kidney: wnl Left Kidney: wnl Upper IVC: wnl Abd Aorta: wnl IMPRESSION: No evidence for acute intra-abdominal process.
== END | disposition home or self-care (01) ==
LOC: RADUSWWP 08:10
PROVIDERS: ATTEND Family Medicine
DX: R10.11 Right upper quadrant pain (principal)
CPT/HCPCS: 76700

== ENCOUNTER → 2024-03-06 | Outpatient (CLI) | payer OTHER ==
--- NOTE | 2024-03-06 10:40 | MM ---
Reason for Exam: Clinical finding. Patient History: Menarche at age 11. First Full-Term at age 26. Maternal grandmother had breast cancer. Risk Values: Sara 5 year model risk: 0.3%. NCI Lifetime model risk: 11.3%. Tissue Density: The breasts are heterogeneously dense, which may obscure small masses. Findings: Analyzed By CAD. The pattern is symmetrical. No suspicious groups of microcalcifications, spiculated or lobular masses, architectural distortion or other secondary signs of malignancy are mammographically apparent. Overall Assessment: Negative, BI-RAD 1 Management: Screening Mammogram of both breasts at age 38. A negative mammogram report should not preclude additional follow up of suspicious palpable abnormalities. Patient should continue monthly self breast exam. A clinical breast exam by your physician is recommended on an annual basis and results should be correlated with mammographic findings. Note on Sara scores and lifetime risk: 1. A Sara score greater than 3% is considered moderate risk. If this is the case, consider specialist referral to assess eligibility for a risk reducing agent. 2. If overall lifetime risk for the development of breast cancer is 20% or higher, the patient may qualify for future screening with alternating mammogram and breast MRI. [facility], , 03/06/2024 10:37 AM. Electronically signed and approved by: Mason Gavin D.O. Radiologis
== END | disposition home or self-care (01) ==
LOC: RADMAMWWP 10:17
PROVIDERS: ATTEND Obstetrics & Gynecology
DX: N64.4 Mastodynia
CPT/HCPCS: 77062; 77066

== ENCOUNTER → 2024-03-20 | Outpatient (CLI) | payer OTHER ==
[2024-03-20 14:30] LABS: Prothrombin Time 10.7 sec (10.0-12.5)
[2024-03-20 17:25] LABS: Cardiolipin Ab IgG Interp Negative (Negative); Cardiolipin Ab IgM Interp Negative (Negative); Cardiolipin IgA Antibody <2.0 U/mL; Cardiolipin IgM Antibody 2.5 U/mL
[2024-03-23 13:44] LABS: Protein S Antigen 102 % (50 - 140)
[2024-03-24 11:29] LABS: Protein C Antigen 121 % (72-160)
== END | disposition home or self-care (01) ==
LOC: LABWHC1 09:57
PROVIDERS: ATTEND Nurse Practitioner Adult Health
DX: D68.59 Other primary thrombophilia (principal)
CPT/HCPCS: 36415; 85302; 85303; 85305; 85306; 85610; 85660; 85730; 86147

== ENCOUNTER → 2024-06-29 | Outpatient (CLI) | payer OTHER ==
[2024-06-29 15:49] LABS: Appearance,Urine Clear (Clear); Bilirubin,Urine Negative (Negative); Blood,Urine Negative (Negative); Color,Urine Yellow; Glucose,Urine (UA) Negative (Negative); Ketones,Urine Negative (Negative); Leukocyte Esterase,Urine Negative (Negative); Nitrite,Urine Negative (Negative); PH, Urine 7.5 (5.0-8.0); Protein,Urine Negative (Negative); Specific Gravity,Urine 1.025 (1.001-1.035); Urobilinogen,Urine <2.0 mg/dL (<2.0)
[2024-06-29 19:46] LABS: ALT 30 U/L (8-44); AST 32 U/L (13-35); Blood Urea Nitrogen 11.1 mg/dL (9.0-27.0); C Reactive Protein <0.30 mg/dL (0.00-0.80)
[2024-06-29 20:43] LABS: Basophils # (A) 0.08 X 10*3/uL (0.00-0.10); Basophils % (A) 0.9 %; Eosinophils # (A) 0.03 X 10*3/uL (0.04-0.35); Eosinophils % (A) 0.3 %; HCT 43.1 % (37.2-46.3); HGB 14.7 g/dL (12.0-15.0); Lymphocytes # (A) 2.02 X 10*3/uL (0.90-5.00); Lymphocytes % (A) 21.5 %; MCH 31.4 pg (27.0-32.0); MCHC 34.1 g/dL (32.0-37.0); MCV 92.1 FL (80.0-97.0); Mean Platelet Volume 11.4 FL (9.5-12.2); Monocytes # (A) 0.59 X 10*3/uL (0.20-1.00); Monocytes % (A) 6.3 %; NRBC Per 100 WBC 0 X 10*3/uL (0.00-0.01); Neutrophils # (A) 6.64 X 10*3/uL (1.80-7.70); Neutrophils % (A) 70.5 %; Platelet Count 328 X 10*3/uL (140-440); RBC 4.68 X 10*6/uL (4.10-5.20); RDW 13.3 % (11.5-14.5); WBC 9.41 X 10*3/uL (4.50-10.00)
[2024-06-29 21:01] LABS: Erythrocyte Sedimentation Rate 8 mm/Hr (0-20)
[2024-06-29 21:23] LABS: Anti-Smith Ab Interp Negative (Negative); Cardiolipin Ab IgG Interp Negative (Negative); Cardiolipin Ab IgM Interp Negative (Negative); Cardiolipin IgA Antibody <2.0 U/mL; Cardiolipin IgM Antibody 2.4 U/mL
[2024-06-30 12:17] LABS: APTT 37 Sec(s) (<43); Dilute Russell Viper Venom 40 Sec(s) (<44); Smooth Muscle Antibody 5 UNITS (<20)
== END | disposition home or self-care (01) ==
LOC: LABWHC1 14:50
DX: R76.8 Other specified abnormal immunological findings in serum (principal)
CPT/HCPCS: 36415; 81003; 82565; 83516; 84450; 84460; 84520; 85025; 85613; 85652; 85730; 86038; 86140; 86147; 86160; 86235

== ENCOUNTER → 2024-11-14 | Outpatient (CLI) | payer OTHER ==
[2024-11-15 00:48] LABS: % Iron Saturation 31.35 (12.00-45.00); ALT 29 U/L (8-44); AST 23 U/L (13-35); Albumin 4.3 g/dL (3.8-4.9); Albumin/Globulin Ratio 2.15 Ratio (1.60-3.17); Alkaline Phosphatase 78 U/L (41-126); BUN/Creat Ratio 10.88 Ratio (12.00-20.00); Blood Urea Nitrogen 8.7 mg/dL (9.0-27.0); Calcium 9.5 mg/dL (8.7-10.3); Carbon Dioxide 22.7 mmol/L (21.6-31.8); Chloride 105 mmol/L (96-109); Chol/HDL Ratio 3.44 Ratio; Glucose 78 mg/dL (70-110); Iron 100 UG/DL (50-170); LDL Cholesterol,Calculated 106.3 mg/dL (0.0-131.0); Potassium 4.3 mmol/L (3.5-5.5); Sodium 140 mmol/L (135-145); T4, Free (Free Thyroxine) 1.46 ng/dL (0.80-1.80); Total Bilirubin 0.5 mg/dL (0.3-1.2); Total Iron Binding Capacity 319 UG/DL (228-460); Total Protein 6.3 g/dL (6.2-8.2); VLDL Calculation 11.54 mg/dL (5.00-40.00)
[2024-11-15 06:31] LABS: Basophils # (A) 0.06 X 10*3/uL (0.00-0.10); Eosinophils # (A) 0.02 X 10*3/uL (0.04-0.35); Eosinophils % (A) 0.3 %; HCT 49.6 % (37.2-46.3); HGB 16.7 g/dL (12.0-15.0); Lymphocytes # (A) 1.24 X 10*3/uL (0.90-5.00); Lymphocytes % (A) 21.2 %; MCH 31.6 pg (27.0-32.0); MCHC 33.7 g/dL (32.0-37.0); MCV 93.9 FL (80.0-97.0); Mean Platelet Volume 11.6 FL (9.5-12.2); Monocytes # (A) 0.47 X 10*3/uL (0.20-1.00); NRBC Per 100 WBC 0 X 10*3/uL (0.00-0.01); Neutrophils # (A) 4.03 X 10*3/uL (1.80-7.70); Neutrophils % (A) 69.2 %; Platelet Count 311 X 10*3/uL (140-440); RBC 5.28 X 10*6/uL (4.10-5.20); RDW 13.3 % (11.5-14.5); WBC 5.84 X 10*3/uL (4.50-10.00)
== END | disposition home or self-care (01) ==
LOC: LABWHC1 10:38
PROVIDERS: ATTEND Nurse Practitioner Adult Health
DX: Z00.00 Encounter for general adult medical examination without abnormal findings (principal); D50.9 Iron deficiency anemia, unspecified
CPT/HCPCS: 36415; 80053; 80061; 82607; 82728; 82746; 83540; 83550; 84439; 84443; 85025